=== PATIENT | male | born 1985 | race Caucasian/White ===

== ENCOUNTER 2017-11-12 10:34 | Outpatient (CLI) ==
[2014-02-23 07:32] VITALS: BMI 35.2
== END 2017-11-12 10:35 | disposition left against medical advice (07) ==
LOC: AMBL 10:34
PROVIDERS: ATTEND Emergency Medicine
DX: Z04.1 Encounter for examination and observation following transport accident (principal); V63.5XXA Driver of heavy transport vehicle injured in collision with car, pick-up truck or van in traffic accident, initial encounter

== ENCOUNTER 2018-02-13 13:01 | Emergency (ER) ==
[2018-02-13 13:06] VITALS: BP 116/79; TEMP 97.5; BMI 37.0
[2018-02-13] MEDS ORDERED: TORADOL IVP STA (13:25)
[2018-02-13] MEDS ORDERED: LACTATED RINGERS 2,000 ML IV STA (13:25)
[2018-02-13] MEDS ORDERED: SODIUM CHLORIDE 1,000 ML IV STA (13:25)
--- NOTE | 2018-02-13 13:31 | ED.PDOC ---
General ED Provider: Dr. CECIL CUEVAS Chief Complaint: Weakness Stated Complaint: Patient is a 32 year old male who states that he has been working outside for longer hours than usual. Then today she started having cramps and feeling lightheaded starting last pm. He states that his symptoms became worse today. Does not know if his symptoms has been exacerbated by a new low carb diet. Time Seen by Physician: 13:30 Mode of Arrival: Walk-In Information Source: Patient, Family Primary Care Provider: SOHEILA AYALA Nursing and Triage Documentation Reviewed and Agree: Yes Does patient meet sepsis criteria?: No System Inflammatory Response Syndrome: Not Applicable Sepsis Protocol: For patient's 13 years and over: Temp is 96.8 and below OR 101 and greater Pulse >90 BPM Resp >20/minute Acutely Altered Mental Status Are patient's symptoms suggestive of a new infection, such as: -Pneumonia -Skin, Soft Tissue -Endocarditis -UTI -Bone, Joint Infection -Implantable Device -Acute Abdominal Infection -Wound Infection -Meningitis -Blood Stream Catheter Infection -Unknown Review of Systems - Review Of Systems Constitutional: Reports: Weakness Eyes: Reports: No symptoms Ears, Nose, Mouth, Throat: Reports: No symptoms Respiratory: Reports: No symptoms Cardiac: Reports: Lightheadedness GI: Reports: No symptoms : Reports: No symptoms Musculoskeletal: Reports: Muscle pain Skin: Reports: No symptoms Neurological: Reports: Anxiety, Headache Endocrine: Reports: No symptoms Hematologic/Lymphatic: Reports: No symptoms All Other Systems: Reviewed and Negative Past Medical History - Past Medical History Previously Healthy: Yes Endocrine: Reports: None Cardiovascular: Reports: Hypertension Respiratory: Reports: None Hematological: Reports: None Gastrointestinal: Reports: None Genitourinary: Reports: None Neuro/Psych: Reports: None Musculoskeletal: Reports: None Cancer: Reports: None - Surgical History General Surgical History: Reports: Tonsillectomy - Family History Family History: Reports: Unknown - Social History Smoking Status: Never smoker Hx Substance Use: No Alcohol Screening: Occasionally Physical Exam - Physical Exam Appearance: Ill-appearing, Obese Ill-appearing: Moderate Pain Distress: Severe Eyes: MAIKOL, EOMI, Conjunctiva clear Neck: Supple Respiratory: Airway patent, Breath sounds clear, Breath sounds equal, Respirations nonlabored Cardiovascular: RRR, Pulses normal, No rub, No murmur GI/: Soft, Nontender, No masses, Bowel sounds normal, No Organomegaly Musculoskeletal: Normal strength, ROM intact, No edema, No calf tenderness Skin: Warm, Dry, Normal color Neurological: Sensation intact, Motor intact, Reflexes intact, Cranial nerves intact, Alert, Oriented Psychiatric: Anxious Re-Evaluation - Re-Evaluation Time of Re-Evaluation: 15:00 Status: Improved Critical Care Note - Critical Care Note Total Time (mins): 0 Course - Course Hematology/Chemistry: 02/13/18 13:30 02/13/18 13:30 Orders, Labs, Meds: Lab Review 02/13/18 02/13/18 02/13/18 01:36 13:30 13:30 WBC 9.26 RBC 4.53 L Hgb 13.5 L Hct 37.2 L MCV 82.1 MCH 29.8 MCHC 36.3 H RDW Coeff of Heather 12.2 Plt Count 264 Immature Gran % (Auto) 0.3 Neut % (Auto) 71.4 Lymph % (Auto) 21.4 [place] % (Auto) 6.0 Eos % (Auto) 0.6 Baso % (Auto) 0.3 Immature Gran # (Auto) 0.0 Neut # (Auto) 6.6 Lymph # (Auto) 2.0 [place] # (Auto) 0.6 Eos # (Auto) 0.1 Baso # (Auto) 0.0 Sodium 136 Potassium 3.6 Chloride 102 Carbon Dioxide 23 Anion Gap 14.6 BUN 22 H Creatinine 1.13 H Estimated GFR (MDRD) 74.00 BUN/Creatinine Ratio 19.46 Glucose 118 H Calcium 9.8 Magnesium 2.4 H Total Bilirubin 1.2 AST 39 H ALT 56 Alkaline Phosphatase 50 Total Creatine Kinase 591 CK-MB (CK-2) 6.6 H* CK-MB (CK-2) % 1.88060 Troponin I < 0.0100 Total Protein 7.1 Albumin 4.2 Globulin 2.9 Albumin/Globulin Ratio 1.45 Orders Category Date Time Status EKG-(ED ONLY) Stat CARDIO 02/13/18 13:25 Completed ED IV/MEDIPORT/POWERPORT .ONCE EMERGENCY 02/13/18 13:25 Active CBC W/ AUTO DIFF Stat LAB 02/13/18 13:30 Completed COMPREHENSIVE METABOLIC PANEL Stat LAB 02/13/18 13:30 Completed CREATINE KINASE Stat LAB 02/13/18 13:30 Completed MAGNESIUM Stat LAB 02/13/18 01:36 Completed TROPONIN I Stat LAB 02/13/18 13:30 Completed 0.9 % Sodium Chloride [Saline Flush] MEDS 02/13/18 13:25 Discontinued 1 syr IVF PRN PRN Ketorolac Tromethamine [Toradol] MEDS 02/13/18 13:25 Discontinued 15 mg IVP ONCE STA Ringers Lactated Solution [Lactated Ringers] 2,000 ml MEDS 02/13/18 13:25 Discontinued IV BOLUS Sodium Chloride 0.9% [Sodium Chloride] 1,000 ml MEDS 02/13/18 13:25 Discontinued IV 125 mls/hr Medications Discontinued Medications Generic Name Dose Route Start Last Admin Trade Name Freq PRN Reason Stop Dose Admin Lactated Ringer's 2,000 mls @ 1,000 mls/hr 02/13/18 13:25 02/13/18 13:37 Lactated Ringers IV 02/13/18 15:24 1,000 mls/hr BOLUS STA Administration Sodium Chloride 1,000 mls @ 125 mls/hr 02/13/18 13:25 02/13/18 15:34 Sodium Chloride IV 02/13/18 21:24 Not Given .Q8H STA Ketorolac Tromethamine 15 mg 02/13/18 13:25 02/13/18 13:42 Toradol IVP 02/13/18 13:26 15 mg ONCE STA Administration Sodium Chloride 1 syr 02/13/18 13:25 02/13/18 13:37 Saline Flush IVF 1 syr PRN PRN Administration To flush IV Vital Signs: Temp Pulse Resp BP Pulse Ox 02/13/18 13:02 97.5 F L 94 H 20 116/79 98 Departure - Departure Time of Disposition: 15:09 Disposition: HOME SELF-CARE Discharge Problem: Heat exhaustion Qualifiers: Encounter type: initial encounter Qualified Code(s): T67.5XXA - Heat exhaustion , unspecified, initial encounter Instructions: Heat Exhaustion (ED) Condition: Stable Pt referred to PMD for follow-up: Yes IPMP verified?: No Additional Instructions: Push fluids Hydrate well with electrolytes Follow up with PCP in 3 days Allergies/Adverse Reactions: Allergies No Known Allergies Allergy (Verified 02/13/18 13:08) Home Medications: Ambulatory Orders Citalopram Hydrobromide [Celexa] 10 mg PO DAILY 02/13/18 Lisinopril 10 mg PO BID 02/13/18 Nebivolol HCl [Bystolic] 10 mg PO DAILY 02/13/18
== END 2018-02-13 15:34 | disposition home or self-care (01) ==
LOC: ED 13:01
DX: T67.5XXA Heat exhaustion, unspecified, initial encounter (principal); R53.1 Weakness; R42 Dizziness and giddiness
CPT/HCPCS: 36415; 80053; 82550; 82553; 83735; 84484; 85025; 93005; 93010; 96361; 96374; 99283